=== PATIENT | male | born 1995 | race Caucasian/White ===

== ENCOUNTER 2020-02-19 19:00 | Emergency (ER) | payer OTHER, BC, SELFPAY ==
[2020-02-19 19:01] VITALS: BP 127/87; PULSE 107; RESP 16; TEMP 36.1; O2SAT 100; BMI 20.5
--- NOTE | 2020-02-19 19:13 | ED.VISSUMM ---
- ER Visit Summary Date of Service: 02/19/20 Chief Complaint: Laceration History of Present Illness: The patient is a [address] Rodriguez. He is left-hand dominant. His tetanus is up-to-date. States that approximately an hour and a half ago he cut his right small finger on a burner on a piece of metal at work. He tried repairing this with tape and glue and states that the diesel fuel makes this wear off. Describes a stabbing pain is 7-10 at worst and 4-10 currently. Is worsened by bending and relieved by rest. He denies any paresthesias. Physical Examination: Vitals: Stable. Afebrile. General: Well-nourished and well-developed. Head: Normocephalic atraumatic. Neck: Supple, no lymphadenopathy. No JVD. Nontender. Cardiovascular: Regular rate and rhythm. No murmurs. Respiratory: No respiratory distress. Clear to auscultation bilaterally. Abdominal: Soft, nontender, nondistended, normal bowel sounds. No guarding, rebound, or peritoneal signs. Back: Nontender. Extremities: Palmar aspect of his right small finger distal phalanx there is a 2 cm laceration that extends to the dermis only. This does not cross the DIP joint. It is not tender to palpation. There is no foreign material present. Skin: Normal color, no rash. Neurologic: Alert and oriented ?3. Cranial nerves II through XII are intact. Normal strength and sensation. Psych: Normal affect. Emergency Department Course and Treatment: I had a prolonged discussion the patient that the glue he is uses no different than the wound glue we use here and that I do not think that that would stay on. I do not think that sutures are indicated and he does not want sutures. He had his wound cleansed and a dressing was placed. He refused pain medications. Treatment Plan: Patient will be discharged with work restrictions. Limited use of his right hand. Keep the area clean and covered. Follow-up with [facility] in 2 days for wound check. Return to the emergency department for any worsening symptoms. Disposition: To home in improved and stable condition. Impression: 1. Laceration right small finger, 2 cm, not repaired. This note was generated with [employer] software. It may contain incorrect words, spelling, and punctuation that were not noted in review of the chart prior to signing ED Disposition - Plan for ED Patient: Instructions: ED Laceration Small or Superficial Not Stitched Referrals: [facility] [GROUP OF PHYSICIANS] - 2 Days for wound check
[2020-02-19 19:37] VITALS: PULSE 72; RESP 16; O2SAT 100
== END 2020-02-19 19:38 | disposition home or self-care (01) ==
LOC: ED 19:34
PROVIDERS: Emergency Provider Emergency Medicine; PCP Family Medicine
DX: S61.216A Laceration without foreign body of right little finger without damage to nail, initial encounter (principal); W26.9XXA Contact with unspecified sharp object(s), initial encounter
CPT/HCPCS: 99282